=== PATIENT | male | born 1990 | race African-American/Black ===

== ENCOUNTER 2017-03-05 23:11 | Emergency (ER) | payer OTHER ==
[~2017-03-05] VITALS: Ht 180.3 cm; Wt 96.0 kg
[2017-03-05 23:25] VITALS: TEMP 36.6; Ht 180.3 cm; Wt 96.0 kg
[2017-03-05] MEDS ORDERED: ALBUT/IPRATROP 3MG/0.5MG NEB 3 ML VIAL INH ONE (23:45)
[2017-03-06] MEDS ORDERED: VNTHFA/IN INH (00:28)
[2017-03-06] MEDS ORDERED: ALBUTEROL HFA 8 GM INHALER INH ONE (00:30)
[2017-03-06 00:36] VITALS: BP 135/83; PULSE 89; O2SAT 98
--- NOTE | 2017-03-06 06:42 | EMERGENCY ROOM VISIT NOTE ---
History First contact with patient: 23:30 Chief Complaint: SHORTNESS OF BREATH Stated Complaint: SOB Nursing Triage Summary: asthma has been flaring up for the past couple of days,and inhaler has recently run out History of Present Illness The patient is a 27 year old male who presents to the Emergency Room with complaints of worsening asthma symptoms for the past 3 or 4 days. The patient has a long-standing history of asthma, and recently ran out of his inhaler. The patient has not had significant fever or chills. This feels similar to previous asthma exacerbations. He does not have other complaints and rates his discomfort a 4/10. Review of Systems More than 10 systems were reviewed and otherwise negative with the exception of history of present illness. Past Medical/Surgical History History of asthma Family History No pertinent family history Social History Smoking Status: Never Smoker Marital Status: in relationship Current/Historical Medications Scheduled Albuterol Hfa (Ventolin Hfa), 2-4 PUFFS INH Q6H Physical Exam Vital Signs Date Time Temp Pulse Resp B/P (MAP) Pulse Ox O2 Delivery O2 Flow Rate FiO2 03/06/17 00:36 89 15 135/83 98 03/05/17 23:36 Room Air 03/05/17 23:25 36.6 89 18 135/83 97 Room Air Physical Exam VITALS: Vitals are noted on the nurse's note and reviewed by myself. Vital signs stable. GENERAL: Well-developed, well-nourished, black male, who is in no acute distress and resting comfortably. Patient is cooperative with the examination. HEART: Regular rate and rhythm without murmurs gallops or rubs. LUNGS: Scant wheezing and rhonchi heard throughout. After DuoNeb lungs were clear bilateral MUSCULOSKELETAL: No muscle atrophy, erythema, or edema noted. Full range of motion without joint tenderness in all extremities. Medical Decision & Procedures Medications Administered Medications (Trade) Dose Ordered Sig/Gregorio Route Start Time Stop Time Status Last Admin Dose Admin Albuterol/ Ipratropium (Duoneb) 3 ml NOW ONCE INH 03/05/17 23:45 03/05/17 23:46 DC 03/05/17 23:43 3 ML Albuterol (Ventolin Hfa Inhaler) 2 puffs NOW ONCE INH 03/06/17 00:30 03/06/17 00:31 DC 03/06/17 00:35 2 PUFFS ED Course Physical exam and history were performed. Nursing notes, EMR, and Medication List were personally reviewed. Patient appears to have a history of asthma. He appears acutely exacerbated the past few days and completed his inhaler. He is having difficulty sleeping tonight because of his symptoms. The patient does not appear toxic on exam. He was given a DuoNeb here in the department. On recheck he had significant improvement of his symptoms. The patient will be given an albuterol inhaler and instructions to follow with his primary care physician. He was otherwise invited back to the ER with any new, worsening, or concerning symptoms. The chart was completed utilizing [employer] Speech Voice Recognition Software. Grammatical errors, random word insertions, pronoun errors, and incomplete sentences are an occasional consequence of this system due to software limitations, ambient noise, and hardware issues. Any formal questions or concerns about the content, text, or information contained within the body of this dictation should be directly addressed to the provider for clarification. . Medical Decision Differential diagnosis: Etiologies such as infections, reactive airway disease, pneumonia, pneumothorax , COPD, CHF, cardiac ischemia, pulmonary embolism, musculoskeletal, gastrointestinal, as well as others were entertained. Impression Primary Impression: Asthma with exacerbation Departure Information Dispostion Home / Self-Care Condition GOOD Prescriptions Albuterol Hfa (VENTOLIN HFA) 200 Puffs/56018 Mcg Aers 2-4 PUFFS INH Q6H, #1 INHALER Prov: Gil Sampson PA-C 03/06/17 Referrals [facility] (PCP) Forms HOME CARE DOCUMENTATION FORM, IMPORTANT VISIT INFORMATION Patient Instructions My [facility] [address] Additional Instructions You were seen and evaluated today on an emergency basis only. This is not a substitute for, or an effort to provide, complete comprehensive medical care. It is not possible to recognize and treat all injuries or illnesses in a single emergency department visit. For this reason it is recommended that you followup with your care physician with any ongoing or persistent symptoms. Use your albuterol inhaler 2 puffs every 4-6 hours as needed for coughing or wheezing. You are welcome to return to the emergency department anytime with new, worsening, or concerning symptoms.
== END 2017-03-06 00:38 | disposition home or self-care (01) ==
LOC: C.EDB 23:13 → C.EDC 03-06 00:38
DX: J45.901 Unspecified asthma with (acute) exacerbation (principal)

== ENCOUNTER 2017-04-20 19:06 | Emergency (ER) | payer OTHER ==
[~2017-04-20] VITALS: Ht 180.3 cm; Wt 94.8 kg
[~2017-04-20 19:06] MED LIST: VNTHFA/IN INH
[2017-04-20 19:18] VITALS: TEMP 36.6; Ht 180.3 cm; Wt 94.8 kg
[2017-04-20] MEDS ORDERED: SODIUM CHLORIDE 0.9% 1000ML 1,000 ML IV STA (19:54)
[2017-04-20 20:19] LABS: BASO % 0.5 %; BASO ABS # 0.03 K/uL (0-0.2); EOS % 3.1 %; EOS ABS # 0.18 K/uL (0-0.5); HEMATOCRIT 44.1 % (42-52); HEMOGLOBIN 15.2 g/dL (14.0-18.0); IG# 0.01 K/uL (0.00-0.02); LYMPH % 41.8 %; LYMPH ABS # 2.46 K/uL (1.2-3.4); MEAN CELL VOLUME 83.2 fL (80-100); MEAN CORPUSCULAR HEMOGLOBIN 28.7 pg (25-34); MEAN CORPUSCULAR HGB CONC 34.5 g/dl (32-36); MEAN PLATELET VOLUME 10.7 fL (7.4-10.4); MONO ABS # 0.53 K/uL (0.11-0.59); NEUT % 45.4 %; NEUT ABS # 2.68 K/uL (1.4-6.5); PLATELET COUNT 177 K/uL (130-400); RED CELL DISTRIBUTION WIDTH CV 14.2 % (11.5-14.5); WHITE BLOOD COUNT 5.89 K/uL (4.8-10.8)
--- NOTE | 2017-04-20 20:36 | DIAGNOSTIC IMAGING REPORT ---
HEAD WITHOUT CONTRAST (CT) CLINICAL HISTORY: 27 years-old Male presenting with HEADACHE, BEHIND r EYE X 2 WEEKS. TECHNIQUE: Multidetector CT imaging of the head was performed without the use of intravenous contrast. IV contrast: None. A dose lowering technique was used consistent with the principles of ALARA (as low as reasonably achievable). COMPARISON: None. CT DOSE (mGy.cm): The estimated cumulative dose is 537.48 mGy.cm. FINDINGS: Time Lock Expert topogram: Unremarkable. Ventricles and sulci normal in size. Brain parenchyma normal in appearance with preserved fuentes-white differentiation. No mass effect or midline shift. No hemorrhage or acute territorial infarct. No extra-axial fluid collection. Paranasal sinuses and mastoid air cells clear. Calvarium intact. The orbits are grossly normal. IMPRESSION: 1. No acute intracranial abnormality. Electronically signed by: Deep Burt M.D. 04/20/2017 8:35 PM Dictated Date/Time: 04/20/2017 8:32 PM
[2017-04-20 20:45] LABS: ALBUMIN 4.1 gm/dl (3.4-5.0); ALT/SGPT 35 U/L (12-78); AST/SGOT 20 U/L (15-37); BLOOD UREA NITROGEN 14 mg/dl (7-18); CALCIUM 9.1 mg/dl (8.5-10.1); CARBON DIOXIDE 25 mmol/L (21-32); CREATININE 1.28 mg/dl (0.60-1.40); GLUCOSE 108 mg/dl (70-99); POTASSIUM 3.9 mmol/L (3.5-5.1); SODIUM 137 mmol/L (136-145)
[2017-04-20 20:48] LABS: ALKALINE PHOSPHATASE 83 U/L (45-117); TOTAL PROTEIN 7.8 gm/dl (6.4-8.2)
[2017-04-20] MEDS ORDERED: IBUP-1050 PO (21:06)
[2017-04-20] MEDS ORDERED: VNTHFA/IN INH (21:06)
[2017-04-20] MEDS ORDERED: BUPR100T8 PO (21:06)
[2017-04-20] MEDS ORDERED: DIPH-437 PO (21:06)
--- NOTE | 2017-04-20 22:21 | EMERGENCY ROOM VISIT NOTE ---
History First contact with patient: 19:43 Chief Complaint: HEADACHE Stated Complaint: CONSISTENT HEADACHES OVER LAST 2 WKS History of Present Illness The patient is a 27 year old male who presents to the Emergency Room via private vehicle with complaints of "consistent headaches over last 2 weeks". The patient states that 2 weeks ago he developed headaches behind the right eye and around the right eye. There was no right eye pain. 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 He thought maybe he was dehydrated therefore increase fluid intake however the headaches will periodically develop. They're in the same spot. He takes any Profen and they very much subside. He states that he was at [place] this past weekend visiting family, and notes that one develop their need and upon his return here. He tried coffee with minimal relief. He states that today one occurred again therefore prompted his visit here today. He had 600 mg of ibuprofen at 3:30 PM. He rates his pain currently on arrival is a 1-2/10. He denies any fevers. He denies any neck stiffness. Review of Systems A complete 10-point Review of Systems was discussed with the patient, with pertinent positives and negatives listed in the History of Present Illness. All remaining Review of Systems questions can be considered negative unless otherwise specified. Past Medical/Surgical History No pertinent. Family History Noncontributory. Social History Smoking Status: Never Smoker Marital Status: in relationship Patient lives locally and is a [employer] student. Current/Historical Medications Scheduled Bupropion (Wellbutrin Sr), 100 MG PO DAILY Scheduled PRN Albuterol Hfa (Ventolin Hfa), 2-4 PUFFS INH Q6H PRN for SOB/Wheezing Diphenhydramine-Acetaminophen (Tylenol Pm), 2 TAB PO HS PRN for Sleep Ibuprofen (Advil), 400-600 MG PO Q6H PRN for Pain Physical Exam Vital Signs Date Time Temp Pulse Resp B/P (MAP) Pulse Ox O2 Delivery O2 Flow Rate FiO2 04/20/17 22:30 78 18 161/97 98 04/20/17 19:18 36.6 88 18 148/71 96 Room Air Physical Exam VITAL SIGNS - Vital signs and nursing notes were reviewed. Stable. Afebrile. GENERAL -27-year-old male appearing his stated age who is in no acute distress. Communicates well with provider and answers questions appropriately. SKIN - Without rashes. No petechial rashes. HEAD - NC/AT. EYES - PERRL with EOMI bilaterally. Sclera anicteric. No hyphema. EARS - No deformities of external structures noted on gross examination bilaterally. No pain elicited with palpation of the tragus bilaterally. External auditory canals without discharge or otorrhea. Tympanic membranes pearly fuentes without retraction or bulging. No fluid or purulent material visualized behind the TM. Handle of malleus, umbo, cone of light, pars tensa/ flaccid all easily visualized. NOSE - Midline and without cyanosis. No epistaxis or purulent drainage noted. MOUTH/OROPHARYNX - Without perioral cyanosis. NECK - Neck with FROM. Supple to palpation. No nuchal rigidity. No meningismus. LUNGS - Chest wall symmetric without accessory muscle use, intercostals retractions, or central cyanosis. Normal vesicular breath sounds CTA B/L. No wheezes, rales, or rhonchi appreciated. CARDIAC - RRR with S1/S2. No murmur, rubs, or gallops appreciated. EXTREMITIES - +5/5 strength noted in UE/LE bilaterally. NEUROLOGIC - Cranial nerves II through XII grossly intact. Sensory intact to light touch throughout. PSYCH - A&O, and cooperates fully with examiner. Pt is very pleasant and interacts well with examiner. Medical Decision & Procedures ER Provider Diagnostic Interpretation: HEAD WITHOUT CONTRAST (CT) CLINICAL HISTORY: 27 years-old Male presenting with HEADACHE, BEHIND r EYE X 2 WEEKS. TECHNIQUE: Multidetector CT imaging of the head was performed without the use of intravenous contrast. IV contrast: None. A dose lowering technique was used consistent with the principles of ALARA (as low as reasonably achievable). COMPARISON: None. CT DOSE (mGy.cm): The estimated cumulative dose is 537.48 mGy.cm. FINDINGS: Vp Lab topogram: Unremarkable. Ventricles and sulci normal in size. Brain parenchyma normal in appearance with preserved fuentes-white differentiation. No mass effect or midline shift. No hemorrhage or acute territorial infarct. No extra-axial fluid collection. Paranasal sinuses and mastoid air cells clear. Calvarium intact. The orbits are grossly normal. IMPRESSION: 1. No acute intracranial abnormality. Electronically signed by: Deep Burt M.D. 04/20/2017 8:35 PM Dictated Date/Time: 04/20/2017 8:32 PM Laboratory Results 04/20/17 20:01 Red Blood Count 5.30, Mean Corpuscular Volume 83.2, Mean Corpuscular Hemoglobin 28.7, Mean Corpuscular Hemoglobin Concent 34.5, Mean Platelet Volume 10.7, Neutrophils (%) (Auto) 45.4, Lymphocytes (%) (Auto) 41.8, Monocytes (%) (Auto) 9.0, Eosinophils (%) (Auto) 3.1, Basophils (%) (Auto) 0.5, Neutrophils # (Auto) 2.68, Lymphocytes # (Auto) 2.46, Monocytes # (Auto) 0.53, Eosinophils # (Auto) 0.18, Basophils # (Auto) 0.03 04/20/17 20:01 Test 04/20/17 20:01 White Blood Count 5.89 K/uL (4.8-10.8) Red Blood Count 5.30 M/uL (4.7-6.1) Hemoglobin 15.2 g/dL (14.0-18.0) Hematocrit 44.1 % (42-52) Mean Corpuscular Volume 83.2 fL (80-100) Mean Corpuscular Hemoglobin 28.7 pg (25-34) Mean Corpuscular Hemoglobin Concent 34.5 g/dl (32-36) Platelet Count 177 K/uL (130-400) Mean Platelet Volume 10.7 fL (7.4-10.4) Neutrophils (%) (Auto) 45.4 % Lymphocytes (%) (Auto) 41.8 % Monocytes (%) (Auto) 9.0 % Eosinophils (%) (Auto) 3.1 % Basophils (%) (Auto) 0.5 % Neutrophils # (Auto) 2.68 K/uL (1.4-6.5) Lymphocytes # (Auto) 2.46 K/uL (1.2-3.4) Monocytes # (Auto) 0.53 K/uL (0.11-0.59) Eosinophils # (Auto) 0.18 K/uL (0-0.5) Basophils # (Auto) 0.03 K/uL (0-0.2) RDW Standard Deviation 43.0 fL (36.4-46.3) RDW Coefficient of Variation 14.2 % (11.5-14.5) Immature Granulocyte % (Auto) 0.2 % Immature Granulocyte # (Auto) 0.01 K/uL (0.00-0.02) Erythrocyte Sedimentation Rate 1 mm/hr (0-14) Anion Gap 4.0 mmol/L (3-11) Est Creatinine Clear Calc Drug Dose 100.1 ml/min Estimated GFR () 87.1 Estimated GFR (Non- 75.1 BUN/Creatinine Ratio 11.1 (10-20) Calcium Level 9.1 mg/dl (8.5-10.1) Total Bilirubin 0.3 mg/dl (0.2-1) Aspartate Amino Transf (AST/SGOT) 20 U/L (15-37) Alanine Aminotransferase (ALT/SGPT) 35 U/L (12-78) Alkaline Phosphatase 83 U/L (45-117) C-Reactive Protein < 0.29 mg/dl (0-0.29) Total Protein 7.8 gm/dl (6.4-8.2) Albumin 4.1 gm/dl (3.4-5.0) Globulin 3.7 gm/dl (2.5-4.0) Albumin/Globulin Ratio 1.1 (0.9-2) Lyme Disease IgG Antibody NEG (NEG) Lyme Disease IgM Antibody NEG (NEG) Medications Administered Medications (Trade) Dose Ordered Sig/Gregorio Route Start Time Stop Time Status Last Admin Dose Admin Sodium Chloride 1,000 ml @ 999 mls/hr Q1H1M STAT IV 04/20/17 19:54 04/20/17 20:54 DC 04/20/17 20:11 999 MLS/HR Medical Decision Patient was seen and evaluated as above. He presents to us today with intermittent headache for the past 2 weeks. He is well on exam. No neurovascular or neurologic deficit. CT scan was obtained of the head and found to be negative. CBC reveals no leukocytosis or anemia. ESR and CRP negative. Lyme testing negative. Metabolic panel negative. He is perhaps a little dehydrated. He was given NSS here. His headache was still subsided. I believe that he is stable for outpatient management. He was offered a lumbar puncture however after discussing benefits versus risks the decision was made to refrain. He appears stable for outpatient management. He was educated upon management, educated upon worrisome symptoms which to return, had questions and provided discharge, and was discharged home in good condition. Intraocular pressure was obtained and found to be 11 in both eyes. In the evaluation and treatment of this patient, the following differential diagnoses were considered: Migraine Headache, Intracranial Hemorrhage, Subdural Hematoma, Subarachnoid Hemorrhage, Cerebral Aneurysm, Temporal/Giant Cell Arteritis, Tension Headache, Meningitis, Encephalitis, or Hydrocephalus. Impression Primary Impression: Headache Departure Information Dispostion Home / Self-Care Condition GOOD Referrals [facility] (PCP) Judy Pretty M.D. Patient Instructions My [facility] Additional Instructions You have been treated in the Emergency Department for a Headache. You have received pain medicine in the emergency department which impairs your ability to operate a vehicle. It is illegal for you to drive after receiving these medicines. For pain control, you can use the following [id number] medicines: - Regular strength (325mg/tab) Tylenol (acetaminophen) 2 tabs every 6 hours as needed. Do not exceed 12 tablets in a 24 hour period. Avoid taking more than 3 grams (3000 mg) of Tylenol per day. This includes any other sources of acetaminophen you may take on a regular basis. - Regular strength (200 mg/tab) Advil (ibuprofen) 1-2 tabs every 4-6 hours as needed. Do not exceed a dose of 3200 mg per day. You should relax in a quiet, dark place for the rest of the day. Avoid any possible triggers including: cigarette smoke, caffeine, nicotine, chocolate, wine, beer, loud noises or music, or bright lights. You should schedule a follow-up appointment in 2-3 days with your Primary Care Provider or established Neurologist for further evaluation and treatment of your Headache. Return to the Emergency Department if your current symptoms worsen despite treatment course outlined above, or if you develop any of the following symptoms : intractable pain despite aforementioned treatment course, visual disturbances , loss of vision, unilateral weakness or facial drooping, slurring of speech, loss of coordination, or loss of consciousness.
[2017-04-20 22:30] VITALS: BP 161/97; PULSE 78; O2SAT 98
== END 2017-04-20 22:38 | disposition home or self-care (01) ==
LOC: C.EDB 19:07 → C.EDA 22:38
DX: R51 Headache (principal)